=== PATIENT | female | born 1945 | race Caucasian/White ===

== ENCOUNTER 2024-04-02 08:56 | Emergency (ER) | payer MEDICARE, OTHER ==
[~2024-04-02] VITALS: Ht 154.9 cm; Wt 60.9 kg
[~2024-04-02 08:56] MED LIST: AMLO-258 PO
[2024-04-02 08:58] VITALS: TEMP 96.6
[2024-04-02] MEDS: PERTUSS(ACELL),DIPH,TET/PF 0.5 ML SYRINGE [ADULT] IM. ONE (10:49)
[2024-04-02] MEDS: IBUPROFEN 400 MG TABLET PO ONE (12:28)
[2024-04-02] MEDS: LIDOCAINE 1% 10 ML VIAL ID ONE (12:28)
[2024-04-02] MEDS ORDERED: PRED20TA3 PO (12:44)
[2024-04-02] MEDS ORDERED: DIPH-1243 PO (12:44)
[2024-04-02] MEDS ORDERED: CEPH-558 PO (13:09)
[2024-04-02] MEDS: CEPHALEXIN MONOHYDRATE 500 MG CAPSULE PO ONE (14:21)
[2024-04-02] MEDS: BACITRACIN 0.9 GM PACKET OINTMENT TP ONE (14:21)
[2024-04-02 15:07] VITALS: BP 145/70; PULSE 95; RESP 18
== END 2024-04-02 18:41 | disposition home or self-care (01) ==
LOC: EMS 08:56
DX: S61.412A Laceration without foreign body of left hand, initial encounter (principal); E11.9 Type 2 diabetes mellitus without complications; Z98.890 Other specified postprocedural states; W54.0XXA Bitten by dog, initial encounter; Y93.89 Activity, other specified; Y92.89 Other specified places as the place of occurrence of the external cause; Y99.8 Other external cause status
CPT/HCPCS: 99283; 82962; 73120; 90715; 90471; 12001; J3490